=== PATIENT | male | born 1990 | race Caucasian/White ===

== ENCOUNTER → 2020-11-17 | Day surgery (SDC) | payer MEDICARE, OTHER ==
[~2020-11-17] VITALS: Ht 162.6 cm; Wt 59.0 kg
[~2020-11-17] MED LIST: ACETAMINOPHEN500 M1 PO; DAILY VITE1 EACH PO; FLONASE ALLER15.8 ML; LIPITOR20 MG PO; MOTRIN600 MG PO; PROZAC20 MG PO; ZYRTEC10 MG PO
== END | disposition home or self-care (01) ==
LOC: FAS 11-03 08:15
DX: D48.5 Neoplasm of uncertain behavior of skin (principal); F84.0 Autistic disorder; F41.9 Anxiety disorder, unspecified; F32.9 Major depressive disorder, single episode, unspecified; J30.9 Allergic rhinitis, unspecified; K12.0 Recurrent oral aphthae; L02.92 Furuncle, unspecified; H60.90 Unspecified otitis externa, unspecified ear; H66.90 Otitis media, unspecified, unspecified ear; Z80.52 Family history of malignant neoplasm of bladder
CPT/HCPCS: 88305; J1100; J2250; J2405; J2704; J2710; J3010; J7120